=== PATIENT | female | born 1995 | race Two or more races ===

== ENCOUNTER 2022-06-07 01:20 | Emergency (ER) | payer BC ==
[~2022-06-07] VITALS: Ht 167.6 cm; Wt 58.1 kg
[2022-06-07] MEDS ORDERED: JUNEL FE 1 MG-1 EACH (01:34)
[2022-06-07] MEDS ORDERED: CANNABIS (01:35)
== END 2022-06-07 04:30 | disposition home or self-care (01) ==
LOC: ER 01:20
DX: R55 Syncope and collapse (principal)